=== PATIENT | female | born 1995 | race Hispanic/Latino ===

== ENCOUNTER 2023-04-06 07:08 | Emergency (ER) | payer OTHER ==
[2023-04-06] MEDS ORDERED: HYDROcodone/Acetaminophen 10/325 mg Tablet ONE (07:39)
== END 2023-04-06 08:58 | disposition home or self-care (01) ==
LOC: ERS 07:08
DX: K08.89 Other specified disorders of teeth and supporting structures (principal); F17.210 Nicotine dependence, cigarettes, uncomplicated
CPT/HCPCS: 99282

== ENCOUNTER 2025-03-21 11:33 | Emergency (ER) | payer BC, MEDICARE, OTHER ==
[2025-03-21 12:25] LABS: #Basophils Less than 0.03 10x3/uL (0.0-0.2); #Eosinophils 0.08 10x3/uL (0.0-0.7); #Monocytes 0.43 10x3/uL (0.11-0.59); #Neutrophils 9.88 10x3/uL (1.40-6.50); %Basophils 0.1 % (0.0-1.0); %Eosinophils 0.7 % (0.0-10.0); %Lymphocytes 12.2 % (21.0-51.0); %Monocytes 3.6 % (0.0-10.0); %Neutrophils 82.8 % (42.0-75.0); Hematocrit 35.0 % (36.0-47.0); Hemoglobin 11.4 g/dL (12.0-16.0); Mean Corpuscular Hemoglobin 27.6 pg (27.0-31.0); Mean Corpuscular Volume 84.7 fL (78.0-98.0); Platelet Count 245 10x3/uL (130-400); Red Blood Cell (RBC) Count 4.13 mill/uL (4.20-5.40); White Blood Cell (WBC) Count 11.92 10x3/uL (4.8-10.8)
[2025-03-21] MEDS ORDERED: Ondansetron PF 4 MG/2 ML Vial ONE (12:33)
[2025-03-21] MEDS ORDERED: Acetaminophen 500 MG TAB ONE (12:33)
[2025-03-21 12:47] LABS: ALT (SGPT) Less than 7 U/L (Less than 34); AST (SGOT) 10 U/L (11-34); Albumin 3.1 g/dL (3.1-4.5); Alkaline Phosphatase 75 U/L (40-110); Anion Gap 14 mmol/L (10-20); BUN (Urea Nitrogen) 8 mg/dL (7.0-18.7); Bilirubin, Total 0.2 mg/dL (0.3-1.2); Calc. Creatinine Clearance 0 mL/min (70-130); Calcium 8.7 mg/dL (7.8-10.44); Carbon Dioxide 20 mmol/L (22-29); Chloride 105 mmol/L (98-107); Globulin 3.7 g/dL (2.4-3.5); Glucose 120 mg/dL (70-105); Potassium 3.7 mmol/L (3.5-5.1); Sodium 135 mmol/L (136-145)
== END 2025-03-21 14:50 | disposition home or self-care (01) ==
LOC: ERS 11:33
DX: O99.891 Other specified diseases and conditions complicating pregnancy (principal); R07.89 Other chest pain; O99.012 Anemia complicating pregnancy, second trimester; D64.9 Anemia, unspecified; Z3A.14 14 weeks gestation of pregnancy
CPT/HCPCS: 71045; 80053; 83880; 84484; 85025; 85379; 87426; 93005; J2405; 96361; 96374